=== PATIENT | female | born 1975 | race Two or more races ===

== ENCOUNTER 2018-07-08 09:52 | Outpatient (CLI) | payer OTHER | END 2018-07-08 10:00 | disposition home or self-care (01) | LOC: NUCLEAR 09:52 | DX: C43.9 Malignant melanoma of skin, unspecified (principal); L03.313 Cellulitis of chest wall | CPT/HCPCS: 78815; A9552 ==

== ENCOUNTER 2018-07-20 08:23 | Outpatient (CLI) | payer OTHER | END 2018-07-20 08:28 | disposition home or self-care (01) | LOC: SONOGRAMA 08:23 | DX: C49.3 Malignant neoplasm of connective and soft tissue of thorax (principal) ==

== ENCOUNTER → 2018-07-27 11:54 | Outpatient (CLI) | payer OTHER | END | disposition home or self-care (01) | LOC: LAB 11:54 | DX: L03.313 Cellulitis of chest wall (principal) ==

== ENCOUNTER 2019-02-08 14:29 | Outpatient (CLI) | payer OTHER | END 2019-02-08 14:33 | disposition home or self-care (01) | LOC: LAB 14:29 | DX: B95.4 Other streptococcus as the cause of diseases classified elsewhere (principal) ==

== ENCOUNTER 2021-02-04 09:47 | Outpatient (CLI) | payer OTHER | END 2021-02-04 09:50 | disposition home or self-care (01) | LOC: NUCLEAR 09:47 | PROVIDERS: ATTEND Internal Medicine Hematology & Oncology | DX: C49.3 Malignant neoplasm of connective and soft tissue of thorax (principal) | CPT/HCPCS: 78815; A9552 ==

== ENCOUNTER 2023-07-30 07:45 | Outpatient (CLI) | payer OTHER | END 2023-07-30 07:47 | disposition home or self-care (01) | LOC: NUCLEAR 07:45 | PROVIDERS: ATTEND Internal Medicine Hematology & Oncology | DX: C49.3 Malignant neoplasm of connective and soft tissue of thorax (principal) ==